=== PATIENT | male | born 1970 | race Caucasian/White ===

== ENCOUNTER 2016-10-18 10:33 | Emergency (ER) | payer OTHER ==
[~2016-10-18] VITALS: Ht 188 cm; Wt 124.0 kg
[~2016-10-18 10:33] MED LIST: LEVA500T33 PO; LORT5TAB PO; METR-1 PO; PHEN12.5 PO; Z.0.NO CURRENT MEDS
[2016-10-18 10:39] VITALS: BP 154/100; PULSE 82; RESP 16; TEMP 98.2; O2SAT 98
[2016-10-18] MEDS ORDERED: LIPI20TA PO (11:17)
[2016-10-18] MEDS ORDERED: LORA-474 PO (11:17)
[2016-10-18] MEDS ORDERED: SODIUM CHLOR 0.9% 1000 ML INJ 1,000 ML IV SCH (11:23)
[2016-10-18] MEDS ORDERED: SODIUM CHLORIDE 0.9% FLUSH 10 ML FLUSH IV FLUSH PRN (11:30)
[2016-10-18] MEDS ORDERED: KETOROLAC TROMETHAMINE 30 MG/ML (IVP) VIAL IVP ONE (11:30)
--- NOTE | 2016-10-18 11:40 | PD ---
HPI Chief Complaint: Flank/Kidney Pain Time Seen by Provider: 11:15 Travel History International Travel<30 days: No Contact w/Intl Traveler<30days: No Traveled to known affect area: No History of Present Illness HPI The patient is a 45-year-old male who presents emergency department for right flank pain which has been present for 2 weeks. The pain is located in the right aspect of the flank, occasionally radiates down into the groin. The pain is worse when he is sitting, while driving with a seatbelt attached. The patient denies any precipitating factors, denies any positional changes that exacerbates the pain except for sitting, and denies any radiation of the pain down the leg. He does have a history of nephrolithiasis and initially thought he had a kidney stone, however, the pain has lasted for over 1 week and is approaching 2 weeks. He denies any nausea, vomiting, dysuria, frequency, urgency, or hematuria. The patient denies any chest pain, shortness of breath, or back pain. Symptoms are moderate, exacerbated by sitting, and there are no current alleviating factors. PFS Past Medical History Anxiety: Yes High Cholesterol: Yes ?: Not Past Surgical History Surgical History: No Previous Surgery Social History Alcohol Use: Yes (OCCASIONALLY) Tobacco Use: No Substance Use: No Allergies-Medications (Allergen,Severity, Reaction): Coded Allergies: No Known Allergies (Unverified , 09/26/11) Reported Meds & Prescriptions Reported Meds & Active Scripts Active Reported Ativan (Lorazepam) 1 Mg Tab 1 Mg PO DAILY PRN Lipitor (Atorvastatin Calcium) 20 Mg Tab 20 Mg PO HS Review of Systems Except as stated in HPI: all other systems reviewed are Neg General / Constitutional: No: Fever Cardiovascular: No: Chest Pain or Discomfort Respiratory: No: Shortness of Breath Gastrointestinal: No: Nausea, Vomiting, Abdominal Pain Genitourinary: Positive: Flank Pain, No: Urgency, Frequency, Dysuria, Hematuria Skin: No Rash Physical Exam Narrative GENERAL: Awake, alert, very pleasant 45-year-old male who appears his stated age and is in no acute respiratory distress. SKIN: Focused skin assessment warm/dry. No stigmata of shingles. HEAD: Atraumatic. Normocephalic. EYES: No injection or drainage. ENT: No nasal bleeding or discharge. Mucous membranes pink and moist. NECK: Trachea midline. No JVD. GASTROINTESTINAL: Abdomen soft, non-tender, nondistended. Negative Sandoval's. Negative McBurney's. Back: No CVA tenderness. MUSCULOSKELETAL: No obvious deformities. No clubbing. No cyanosis. No edema. The patient ambulates without difficulty. NEUROLOGICAL: Awake and alert. No obvious cranial nerve deficits. Motor grossly within normal limits. Normal speech. PSYCHIATRIC: Appropriate mood and affect; insight and judgment normal. Data Data Last Documented VS Vital Signs Date Time Temp Pulse Resp B/P Pulse Ox O2 Delivery O2 Flow Rate FiO2 10/18/16 11:44 98 Room Air 10/18/16 10:39 98.2 82 16 154/100 Orders Complete Blood Count With Diff (10/18/16 11:23) Comprehensive Metabolic Panel (10/18/16 11:23) Urinalysis - C+S If Indicated (10/18/16 11:23) Ct Abd/Pel W/O Iv Contrast (10/18/16 11:23) Iv Access Insert/Monitor (10/18/16 11:23) Ecg Monitoring (10/18/16 11:23) Oximetry (10/18/16 11:23) Sodium Chlor 0.9% 1000 Ml Inj (Ns 1000 M (10/18/16 11:23) Sodium Chloride 0.9% Flush (Ns Flush) (10/18/16 11:30) Ketorolac Inj (Toradol Inj) (10/18/16 11:30) Labs Laboratory Tests Test 10/18/16 11:39 White Blood Count 7.6 TH/MM3 Red Blood Count 5.19 MIL/MM3 Hemoglobin 16.1 GM/DL Hematocrit 47.6 % Mean Corpuscular Volume 91.7 FL Mean Corpuscular Hemoglobin 31.0 PG Mean Corpuscular Hemoglobin 33.8 % Concent Red Cell Distribution Width 12.1 % Platelet Count 181 TH/MM3 Mean Platelet Volume 8.7 FL Neutrophils (%) (Auto) 69.7 % Lymphocytes (%) (Auto) 21.4 % Monocytes (%) (Auto) 7.0 % Eosinophils (%) (Auto) 1.3 % Basophils (%) (Auto) 0.6 % Neutrophils # (Auto) 5.4 TH/MM3 Lymphocytes # (Auto) 1.6 TH/MM3 Monocytes # (Auto) 0.5 TH/MM3 Eosinophils # (Auto) 0.1 TH/MM3 Basophils # (Auto) 0.0 TH/MM3 CBC Comment DIFF FINAL Differential Comment Urine Collection Type CLEAN CATCH Urine Color YELLOW Urine Turbidity CLEAR Urine pH 5.5 Urine Specific [place] 1.020 Urine Protein NEG mg/dL Urine Glucose (UA) 1000 OR GREATER mg/dL Urine Ketones NEG mg/dL Urine Occult Blood NEG Urine Nitrite NEG Urine Bilirubin NEG Urine Leukocyte Esterase NEG Urine WBC 0-2 /hpf Urine Squamous Epithelial 0-5 /hpf Cells Microscopic Urinalysis Comment CULT NOT INDICATED Sodium Level 137 MEQ/L Potassium Level 3.8 MEQ/L Chloride Level 103 MEQ/L Carbon Dioxide Level 24.5 MEQ/L Anion Gap 10 MEQ/L Blood Urea Nitrogen 11 MG/DL Creatinine 1.30 MG/DL Estimat Glomerular Filtration 60 ML/MIN Rate Random Glucose 91 MG/DL Calcium Level 9.0 MG/DL Total Bilirubin 0.5 MG/DL Aspartate Amino Transf 52 U/L (AST/SGOT) Alanine Aminotransferase 80 U/L (ALT/SGPT) Alkaline Phosphatase 56 U/L Total Protein 7.9 GM/DL Albumin 4.2 GM/DL [facility] Medical Decision Making Medical Screen Exam Complete: Yes Emergency Medical Condition: Yes Medical Record Reviewed: Yes Interpretation(s) Laboratory Tests Test 10/18/16 11:39 White Blood Count 7.6 TH/MM3 Red Blood Count 5.19 MIL/MM3 Hemoglobin 16.1 GM/DL Hematocrit 47.6 % Mean Corpuscular Volume 91.7 FL Mean Corpuscular Hemoglobin 31.0 PG Mean Corpuscular Hemoglobin 33.8 % Concent Red Cell Distribution Width 12.1 % Platelet Count 181 TH/MM3 Mean Platelet Volume 8.7 FL Neutrophils (%) (Auto) 69.7 % Lymphocytes (%) (Auto) 21.4 % Monocytes (%) (Auto) 7.0 % Eosinophils (%) (Auto) 1.3 % Basophils (%) (Auto) 0.6 % Neutrophils # (Auto) 5.4 TH/MM3 Lymphocytes # (Auto) 1.6 TH/MM3 Monocytes # (Auto) 0.5 TH/MM3 Eosinophils # (Auto) 0.1 TH/MM3 Basophils # (Auto) 0.0 TH/MM3 CBC Comment DIFF FINAL Differential Comment Urine Collection Type CLEAN CATCH Urine Color YELLOW Urine Turbidity CLEAR Urine pH 5.5 Urine Specific [place] 1.020 Urine Protein NEG mg/dL Urine Glucose (UA) 1000 OR GREATER mg/dL Urine Ketones NEG mg/dL Urine Occult Blood NEG Urine Nitrite NEG Urine Bilirubin NEG Urine Leukocyte Esterase NEG Urine WBC 0-2 /hpf Urine Squamous Epithelial 0-5 /hpf Cells Microscopic Urinalysis Comment CULT NOT INDICATED Sodium Level 137 MEQ/L Potassium Level 3.8 MEQ/L Chloride Level 103 MEQ/L Carbon Dioxide Level 24.5 MEQ/L Anion Gap 10 MEQ/L Blood Urea Nitrogen 11 MG/DL Creatinine 1.30 MG/DL Estimat Glomerular Filtration 60 ML/MIN Rate Random Glucose 91 MG/DL Calcium Level 9.0 MG/DL Total Bilirubin 0.5 MG/DL Aspartate Amino Transf 52 U/L (AST/SGOT) Alanine Aminotransferase 80 U/L (ALT/SGPT) Alkaline Phosphatase 56 U/L Total Protein 7.9 GM/DL Albumin 4.2 GM/DL Last Impressions Abdomen/Pelvis CT 10/18/16 1123 Signed Impressions: Service Date/Time: Tuesday, October 18, 2016 11:42 - CONCLUSION: 1. No abnormality is identified to explain the right flank pain. There are no renal stones. 2. Nonacute findings include severe hepatic steatosis and mild atherosclerotic disease. Tye Gee MD Differential Diagnosis Differential diagnosis includes nephrolithiasis, hydronephrosis, pyelonephritis , atypical appendicitis, neuralgia, shingles, neuropathy. Narrative Course IV was established, labs are drawn and sent, and the patient was placed on cardiac telemetry monitoring and continuous pulse oximetry monitoring. The patient was a senior loan officer Toradol [address] of the abdomen and pelvis was ordered. Laboratory evaluation is unremarkable. UA does reveal glucose, however, no evidence of infection or hematuria. CMP is unremarkable except for mildly elevated AST and ALTs. CT abdomen and pelvis reveals no nephrolithiasis, does reveal mild hepatic steatosis. The patient is advised to follow his primary physician for reevaluation of his LFTs and 3 months. He will be placed on a Medrol Dosepak for presumed musculoskeletal/ neuropathic pain. The patient is advised to have activity as tolerated and follow-up with his primary physician. Diagnosis Primary Impression: Right flank pain Patient Instructions: General Instructions Additional Instructions: Medications as directed. Please provide the patient a copy of his CT results and lab results at discharge. Follow-up with your primary physician. Return if symptoms worsen or progress. Med/Other Pt SpecificInfo: Prescription(s) given Scripts Methylprednisolone Dosepak (Medrol Dosepak)4 Mg Dspk4 Mg PO DIRECTED #1 DSPK Ref 0 Per Pharmacist direction Prov:Jaun Pimentel MD 10/18/16 Disposition: 01 DISCHARGE HOME Condition: Stable Jaun Pimentel MD Oct 18, 2016 11:40
[2016-10-18 11:44] VITALS: O2SAT 98
[2016-10-18 11:50] LABS: AUTOMATED NEUTROPHIL # 5.4 TH/MM3 (1.8-7.7); BASOPHIL % 0.6 % (0.0-2.0); EOSINOPHIL # 0.1 TH/MM3 (0-0.4); EOSINOPHIL % 1.3 % (0.0-4.0); HEMATOCRIT 47.6 % (39.0-51.0); HEMO FLAGS DIFF FINAL; LYMPH % 21.4 % (9.0-44.0); LYMPHOCYTE # 1.6 TH/MM3 (1.0-4.8); MEAN CELL VOLUME 91.7 FL (80.0-100.0); MEAN CORPUSCULAR HGB CONC 33.8 % (32.0-36.0); NEUT % 69.7 % (16.0-70.0); PLATELET COUNT 181 TH/MM3 (150-450); RED BLOOD COUNT 5.19 MIL/MM3 (4.50-5.90); RED CELL DISTRIBUTION WIDTH 12.1 % (11.6-17.2); WHITE BLOOD COUNT 7.6 TH/MM3 (4.0-11.0)
[2016-10-18 12:00] LABS: CHLORIDE 103 MEQ/L (98-107); POTASSIUM 3.8 MEQ/L (3.5-5.1); SODIUM (NA) 137 MEQ/L (136-145)
[2016-10-18 12:01] LABS: BLOOD, URINE NEG (NEG); KETONE, URINE NEG (NEG); NITRITE,URINE NEG (NEG); PH, URINE 5.5 (5.0-8.5)
[2016-10-18 12:03] LABS: ANION GAP 10 MEQ/L (5-15); BICARBONATE 24.5 MEQ/L (21.0-32.0); BLOOD UREA NITROGEN 11 MG/DL (7-18)
[2016-10-18 12:06] LABS: ALT (GPT) 80 U/L (12-78); AST (GOT) 52 U/L (15-37)
[2016-10-18 12:07] LABS: GLOMERULAR FILTRATION RATE 60 ML/MIN (>89); GLUCOSE,URINE 1000 OR GREATER mg/dL (NEG)
[2016-10-18 12:08] LABS: TOTAL BILIRUBIN ADULT 0.5 MG/DL (0.2-1.0)
[2016-10-18 12:09] LABS: ALKALINE PHOSPHATASE 56 U/L (45-117)
[2016-10-18 12:10] LABS: METHOD OF COLLECTION CLEAN CATCH; URINE COLOR YELLOW (YELLW/STRAW)
--- NOTE | 2016-10-18 12:10 | RADRPT ---
EXAM DATE/TIME: 10/18/2016 11:42 [facility] COMPARISON: CT ABDOMEN & PELVIS W/O CONTRAST, September 26, 2011, 16:33. INDICATIONS : Right flank pain for two weeks. ORAL CONTRAST: No oral contrast ingested. RADIATION DOSE: 24.76 CTDIvol (mGy) MEDICAL HISTORY : Hypercholesterolemia. SURGICAL HISTORY : None. ENCOUNTER: Initial ACUITY: 2 weeks PAIN SCALE: 4/10 LOCATION: Right flank TECHNIQUE: Volumetric scanning of the abdomen and pelvis was performed. Using automated exposure control and ad justment of the mA and/or kV according to patient size, radiation dose was kept as low as reasonably achievable to obtain optimal diagnostic quality images. DICOM format image data is available electro nically for review and comparison. FINDINGS: LOWER LUNGS: The visualized lower lungs are clear. LIVER: There is severe steatosis with areas of geographic sparing in the left lobe and adjacent to the gallb ladder fossa. There is no dilation of the biliary tree. No calcified gallstones. SPLEEN: Normal size without lesion. PANCREAS: Within normal limits. KIDNEYS: Normal in size and shape. There is no mass, stone, or hydronephrosis. ADRENAL GLANDS: Within normal limits. VASCULAR: There is no aortic aneurysm. There is mild atherosclerotic disease. BOWEL/MESENTERY: The stomach, small bowel, and colon demonstrate no acute abnormality. There is no free intraperitone al air or fluid. Appendix is normal. ABDOMINAL WALL: Within normal limits. RETROPERITONEUM: There is no lymphadenopathy. BLADDER: No wall thickening or mass. REPRODUCTIVE: Within normal limits. INGUINAL: There is no lymphadenopathy or hernia. MUSCULOSKELETAL: No acute abnormality is identified. CONCLUSION: 1. No abnormality is identified to explain the right flank pain. There are no renal stones. 2. Nonacute findings include severe hepatic steatosis and mild atherosclerotic disease. Tye Gee MD on October 18, 2016 at 12:06 Board Certified Radiologist. This report was verified electronically.
[2016-10-18 12:11] LABS: COMMENT (UR) CULT NOT INDICATED; CULTURE IF INDICATED CULT NOT INDICATED; SQUAMOUS EPITHELIAL CELL URINE 0-5 /hpf (0-5); WBC, URINE 0-2 /hpf (0-5)
[2016-10-18] MEDS ORDERED: MEDR4PAK PO (12:33)
== END 2016-10-18 12:51 | disposition home or self-care (01) ==
LOC: PHED 10:33
DX: R10.9 Unspecified abdominal pain (principal)
CPT/HCPCS: 74176; 80053; 81001; 85025; 96361; 96374; 99285; J1885; J7030

== ENCOUNTER 2018-02-13 06:18 | Inpatient (IN) ==
[2018-02-13] MEDS ORDERED: Sod Chloride 0.9% Inj 1,000 ML IV.SIG ONE (06:34)
[2018-02-13] MEDS ORDERED: Pantoprazole Inj 40 MG Vial IV.PUSH ONE (06:34)
[2018-02-13] MEDS ORDERED: Octreotide Inj 50 MCG/ML Vial IV.PUSH ONE (06:36)
--- NOTE | 2018-02-13 06:40 | ED ---
HPI General Chief complaint: GI Bleed Stated complaint: GI issues Time Seen by Provider: 02/13/18 06:34 Source: patient Mode of arrival: EMS Limitations: no limitations History of Present Illness HPI Narrative: 47-year-old male came to the emergency room with history of vomiting blood and rectal bleed at 1:30 in the morning followed by 5 in the morning. Patient had a syncopal episode at 5:00 in the morning when called 911. His had witnessed the vomiting episode and she said there was significant amount of blood on the couch, floor spread out into a large puddle with blood clots. Patient had received 1 L of IV fluid bolus by EMS on route. Currently he is awake and answering questions and says he feels tired. He also received 4 mg of Zofran on route. Patient was tachycardic upon arrival with heart rate in 140s. Blood pressure is stable. Patient does not have any abdominal pain. Patient had a colonoscopy about 3-4 years back and was normal. He drinks about 3-4 glasses of vodka 4-5 times a week. He has never had this kind of episode in the past. Related Data Home Medications Medication Instructions Recorded Confirmed lorazepam [Ativan] 1 mg PO Q4-6H PRN 02/13/18 02/13/18 lovastatin 20 mg PO DAILY 02/13/18 02/13/18 Allergies Allergy/AdvReac Type Severity Reaction Status Date / Time No Known Allergies Allergy Verified 02/13/18 07:31 Review of Systems ROS: all other systems reviewed are negative PMFSH History History Provided By: Patient Medical History Medical History Anxiety (Acute) High cholesterol (Acute) Surgical History Surgical History No history of previous surgery (Acute) Social History Social History Substance History: No History of Abuse Second Hand Smoke Exposure: No Smoking Status: Former smoker How Often Do You Have a Drink Containing Alcohol: 4 or more times a week Recent Travel in [facility] within the Last 8 Weeks: No Recent Out of Country Travel within the Last 8 Weeks: No Exam Narrative Exam Narrative: GENERAL: Awake, alert, mild distress SKIN: Focused skin assessment warm/dry. Pale HEAD: Atraumatic. Normocephalic. EYES: Pupils equal and round. No scleral icterus. No injection or drainage. ENT: No nasal bleeding or discharge. Mucous membranes pink and moist. NECK: Trachea midline. No JVD. CARDIOVASCULAR: Regular rate and rhythm. No murmur appreciated. RESPIRATORY: No accessory muscle use. Clear to auscultation. Breath sounds equal bilaterally. GASTROINTESTINAL: Abdomen soft, non-tender, nondistended. Hepatic and splenic margins not palpable. MUSCULOSKELETAL: No obvious deformities. No clubbing. No cyanosis. No edema. NEUROLOGICAL: Awake and alert. No obvious cranial nerve deficits. Motor grossly within normal limits. Normal speech. PSYCHIATRIC: Appropriate mood and affect; insight and judgment normal. Procedures Hemaprompt Stool Procedural Steps Taken: specimen placed in appropriate test area, developer placed on specimen and control areas and controls appropriately positive and negative Hemaprompt Stool Result: positive Course Reevaluation(s) Reevaluation #1: Patient has received about 1.5 L of fluid and remains tachycardic at about 130 Time: 07:34 Consultations Consultation #1: Dr. Aguirre will take to the GI lab. Patient needs to remain NPO. Time: 07:34 Consultation #2: Dr. Gamble will admit to [facility]. He is ordering a repeat CBC for 08 :30. Time: 08:09 Initial Documented Vital Signs Pulse Rate 142 H 02/13/18 06:23 Respiratory Rate 22 02/13/18 06:23 Blood Pressure 135/67 02/13/18 06:23 Pulse Oximetry 99 02/13/18 06:23 Last Documented Vital Signs Pulse Rate 111 H 02/13/18 08:01 Respiratory Rate 14 02/13/18 08:01 Blood Pressure 132/72 02/13/18 08:01 Pulse Oximetry 98 02/13/18 08:01 Critical Care Time Critical Care Time: Yes Total Critical Care Time: 45 Attestation: Time to perform other separately billable procedures was not included in the critical care time. My time did not include minutes spent treating any other patients simultaneously or on activities that did not directly contribute to the patient's treatment. The services I provided to this patient were to treat and/or prevent clinically significant deterioration due to upper GI bleed with tachycardia I provided critical care services requiring my management, as noted below: Chart data review, documentation time, medication orders and management, vital sign assessments/reviewing monitor data, ordering and reviewing lab tests, ordering and interpreting/reviewing x-rays and diagnostic studies, care of the patient and discussion of the patient with the admitting physicians Sign Out Sign Out Data: Patient Sign Out occurred on 02/13/18 at 07:32. Patient's care was discussed, and care was transferred from Nate Win to Linsey Palma. Sign Out Comment: GI bleed upper and lower. Awaiting for GI consultation for an urgent endoscopy. Last updated by Nate Win MD at 02/13/18 06:51 Post-Handoff Eval: This patient was signed out to me at 7 AM pending labs and GI consultation followed by admission for an upper GI bleed Medical Decision Making MDM Narrative Medical decision making narrative: 6:40 AM I put a call out for GI. Patient is getting 1 L IV fluid bolus, Protonix bolus, Sandostatin bolus and Protonix and Sandostatin drip. Patient will require EGD. Awaiting for GI to call back. Patient will be signed over to the oncoming ER physician. Medical Screen Exam Complete: Yes Emergency Medical Condition: Yes Lab Data Result diagrams: 02/13/18 06:45 02/13/18 06:45 Lab Results 02/13/18 02/13/18 02/13/18 Range/Units 06:45 06:45 06:45 WBC 13.5 H (4.0-11.0) th/mm3 RBC 3.72 L (4.50-5.90) mil/mm3 Hgb 11.9 L (13.0-17.0) gm/dL Hct 35.7 L (39.0-51.0) % MCV 96.2 (80.0-100.0) fL MCH 32.0 (27.0-34.0) pg MCHC 33.3 (32.0-36.0) % RDW 12.8 (11.6-17.2) % Plt Count 199 (150-450) th/mm3 MPV 9.0 (7.0-11.0) fL Neut % (Auto) 83.4 H (16.0-70.0) % Lymph % (Auto) 9.6 (9.0-44.0) % Trinity % (Auto) 6.6 (0.0-8.0) % Eos % (Auto) 0.1 (0.0-4.0) % Baso % (Auto) 0.3 (0.0-2.0) % Neut # (Auto) 11.3 H (1.8-7.7) th/mm3 Lymph # (Auto) 1.3 (1.0-4.8) th/mm3 Trinity # (Auto) 0.9 (0.0-0.9) th/mm3 Eos # (Auto) 0.0 (0.0-0.4) th/mm3 Baso # (Auto) 0.0 (0.0-0.2) th/mm3 WBC Differential . Differential Comment Auto diff final PT 10.4 (9.8-11.6) sec INR 1.0 Ratio APTT 21.7 L (23.4-31.7) sec Sodium 142 (136-145) meq/L Potassium 4.7 (3.5-5.1) meq/L Chloride 110 H (98-107) meq/L Carbon Dioxide 23.7 (21.0-32.0) meq/L Anion Gap 8 (5-15) meq/L BUN 49 H (7-18) mg/dL Creatinine 1.19 (0.60-1.30) mg/dL Estimated GFR 66 L (>89) mL/min Random Glucose 144 H (74-106) mg/dL Calcium 7.6 L (8.5-10.1) mg/dL Total Bilirubin 0.5 (0.2-1.0) mg/dL AST 25 (15-37) U/L ALT 38 (12-78) U/L Alkaline Phosphatase 34 L (45-117) U/L Total Protein 6.4 (6.4-8.2) g/dL Albumin 3.1 L (3.4-5.0) g/dL Blood Type Blood Type Recheck Antibody Screen 02/13/18 Range/Units 06:45 WBC (4.0-11.0) th/mm3 RBC (4.50-5.90) mil/mm3 Hgb (13.0-17.0) gm/dL Hct (39.0-51.0) % MCV (80.0-100.0) fL MCH (27.0-34.0) pg MCHC (32.0-36.0) % RDW (11.6-17.2) % Plt Count (150-450) th/mm3 MPV (7.0-11.0) fL Neut % (Auto) (16.0-70.0) % Lymph % (Auto) (9.0-44.0) % Trinity % (Auto) (0.0-8.0) % Eos % (Auto) (0.0-4.0) % Baso % (Auto) (0.0-2.0) % Neut # (Auto) (1.8-7.7) th/mm3 Lymph # (Auto) (1.0-4.8) th/mm3 Trinity # (Auto) (0.0-0.9) th/mm3 Eos # (Auto) (0.0-0.4) th/mm3 Baso # (Auto) (0.0-0.2) th/mm3 WBC Differential Differential Comment PT (9.8-11.6) sec INR Ratio APTT (23.4-31.7) sec Sodium (136-145) meq/L Potassium (3.5-5.1) meq/L Chloride (98-107) meq/L Carbon Dioxide (21.0-32.0) meq/L Anion Gap (5-15) meq/L BUN (7-18) mg/dL Creatinine (0.60-1.30) mg/dL Estimated GFR (>89) mL/min Random Glucose (74-106) mg/dL Calcium (8.5-10.1) mg/dL Total Bilirubin (0.2-1.0) mg/dL AST (15-37) U/L ALT (12-78) U/L Alkaline Phosphatase (45-117) U/L Total Protein (6.4-8.2) g/dL Albumin (3.4-5.0) g/dL Blood Type A Positive Blood Type Recheck Required Antibody Screen Negative ECG Data Attestation: I personally reviewed and interpreted this ECG as follows: Interpretation: Twelve-lead EKG was reviewed by me. Normal sinus rhythm, normal axis, nonspecific ST-T wave changes, tachycardia. Heart rate of 143 bpm. Discharge Plan Discharge Disposition Patient Disposition: 30 Still Patient Discharge Details Diagnosis: Upper gastrointestinal hemorrhage Physicians Team ED Provider: Linsey Palma Primary Care Provider: Gavino Dillard Rxs /Orders / Referrals /Forms Prescriptions: No Action lorazepam [Ativan] 1 mg Tablet 1 mg PO Q4-6H PRN (Reason: Anxiety) RF: 0 lovastatin 20 mg Tablet 20 mg PO DAILY RF: 0 Status ED Status: With Doctor
[2018-02-13 07:02] LABS: Baso % (Auto) 0.3 % (0.0-2.0); Eos % (Auto) 0.1 % (0.0-4.0); Hematocrit 35.7 % (39.0-51.0); Hemoglobin 11.9 gm/dL (13.0-17.0); Lymph # (Auto) 1.3 th/mm3 (1.0-4.8); Lymph % (Auto) 9.6 % (9.0-44.0); Mean Corpuscular HGB Conc 33.3 % (32.0-36.0); Mean Corpuscular Volume 96.2 fL (80.0-100.0); Mono # (Auto) 0.9 th/mm3 (0.0-0.9); Mono % (Auto) 6.6 % (0.0-8.0); Neut # (Auto) 11.3 th/mm3 (1.8-7.7); Neut % (Auto) 83.4 % (16.0-70.0); Platelet Count 199 th/mm3 (150-450); Red Blood Count 3.72 mil/mm3 (4.50-5.90); Red Cell Distribution Width 12.8 % (11.6-17.2); White Blood Count 13.5 th/mm3 (4.0-11.0)
[2018-02-13 07:09] LABS: Activated Partial Thrombo Time 21.7 sec (23.4-31.7); Prothrombin Time 10.4 sec (9.8-11.6)
[2018-02-13] MEDS: Pantoprazole Inj 80 MG in Sodium Chlor 0.9% Inj 100 ML IV.CONT SCH ×2 (07:13→18:31)
[2018-02-13] MEDS: Octreotide Inj 500 MCG in Sodium Chlor 0.9% Inj 500 ML IV.CONT SCH ×2 (07:14→17:37)
[2018-02-13] MEDS ORDERED: Sod Chloride 0.9% Inj 1,000 ML IV.SIG SCH (07:15)
[2018-02-13 07:16] LABS: Alanine Aminotransferase 38 U/L (12-78); Albumin 3.1 g/dL (3.4-5.0); Anion Gap 8 meq/L (5-15); Aspartate Aminotransferase 25 U/L (15-37); Blood Urea Nitrogen 49 mg/dL (7-18); Calcium 7.6 mg/dL (8.5-10.1); Carbon Dioxide 23.7 meq/L (21.0-32.0); Chloride 110 meq/L (98-107); Glomerular Filtration Rate 66 mL/min (>89); Glucose,Random 144 mg/dL (74-106); Potassium 4.7 meq/L (3.5-5.1); Sodium 142 meq/L (136-145)
[2018-02-13 07:18] LABS: Alkaline Phosphatase 34 U/L (45-117); Total Protein 6.4 g/dL (6.4-8.2)
[2018-02-13] MEDS ORDERED: Potassium Chlor 20 mEq Premix 20 MEQ/100 ML PIGGYBACK IV.SIG PRN ×2 (08:08)
[2018-02-13] MEDS ORDERED: Potassium Chloride 25 MEQ Effervescent Tablet PO PRN (08:08)
[2018-02-13] MEDS ORDERED: Magnesium Sulfate Inj 2 GM in Sodium Chlor 0.9% Inj 96 ML IV.SIG PRN (08:08)
[2018-02-13] MEDS ORDERED: Potassium Phosphate Inj 30 MMOL in Sodium Chlor 0.9% Inj 250 ML IV.SIG PRN (08:08)
[2018-02-13] MEDS ORDERED: Bisacodyl 10 MG Supp RECTAL PRN (08:08)
[2018-02-13] MEDS ORDERED: Potassium Phosphate 500 MG Soluble Tablet PO PRN ×2 (08:08)
[2018-02-13] MEDS ORDERED: Potassium Chlor 40 mEq Premix 40 MEQ/100 ML PIGGYBACK IV.SIG PRN ×2 (08:08)
[2018-02-13] MEDS ORDERED: Magnesium Oxide 400 MG Tablet PO PRN (08:08)
[2018-02-13] MEDS ORDERED: Magnesium Sulfate Inj 4 GM in Sodium Chlor 0.9% Inj 92 ML IV.SIG PRN (08:08)
[2018-02-13] MEDS ORDERED: Sodium Phosphate Inj 30 MMOL in Sodium Chlor 0.9% Inj 250 ML IV.SIG PRN (08:08)
[2018-02-13] MEDS: Senna/Docusate Sodium 8.6/50 MG Tablet PO SCH ×2 (08:27→20:31)
[2018-02-13] MEDS: Sod Chloride 0.9% Inj 1,000 ML IV.CONT SCH ×2 (08:32→20:14)
[2018-02-13] MEDS ORDERED: LORazepam 1 MG Tablet PO PRN (09:06)
[2018-02-13] MEDS ORDERED: Haloperidol Inj 5 MG/ML Ampul IV.PUSH PRN (09:06)
--- NOTE | 2018-02-13 09:26 | P.HPCC ---
History of Present Illness Service: critical care Primary Care Physician: Gavino Dillard MD Chief Complaint: Hemetemesis History of Present Illness: 47-year-old male came to the emergency room with history of dyslipidemia, heavy alcohol use/abuse, who presented to the emergency department with hematemesis and rectal bleed since 1:30 AM today. At 5 AM patient had a large volume hematemesis and they called EMS and presented to the emergency department. At that time patient had syncopal episode also. Patient had received 1 L of IV fluid bolus by EMS on route. Patient was tachycardic upon arrival with heart rate in 140s. He admits to drinking 3-4 shots of vodka most days of the week sometimes more. Never had upper or lower GI bleed before. No history of liver disease. I evaluated the patient in the ED. He appears anxious and slightly tremulous. So far has received 3 L normal saline boluses. Remains tachycardic still, heart rate in 110s. Blood pressure remained stable. at the bedside quantifies approximately 2-3 L blood loss. His hemoglobin was 11.9 in the ED, his hemoglobin last year 16.1. On exam there is no stigmata of chronic liver disease. Patient had been started on octreotide infusion, Protonix bolus and infusion. Dr. Gates from GI had been consulted and will plan on endoscopy today. Coags and platelet count are normal. I have added Rocephin for SBP prophylaxis. Patient is also slightly tremulous and anxious, placed on CIWA protocol and MVI, thiamin Inpatient Certification: I certify that the inpatient services were ordered in accordance with Medicare regulations governing the order. This includes certification that hospital inpatient services are reasonable and necessary and in the case of services not specified as inpatient-only under 42 CFR 419.22(n), that they are appropriately provided as inpatient services in accordance to with the 2-midnight benchmark under 43 CFR 412.3(e) Estimated Total Length of Stay (Days): 5 Plans for Post Hospital Care: Not yet determined Review of Systems All other systems reviewed negative except as stated in HPI PMFSH - History History Provided By: Patient - Medical History Medical History: Medical History (Last Reviewed 02/13/18 @ 09:15 by Kimmy Gamble MD) Anxiety High cholesterol - Surgical History Surgical History: Surgical History (Last Reviewed 02/13/18 @ 09:15 by Kimmy Gamble MD) No history of previous surgery - Tobacco History Second Hand Smoke Exposure: No Smoking Status: Former smoker - Alcohol History How Often Do You Have a Drink Containing Alcohol: 4 or more times a week - Substance Use History Substance History: No History of Abuse - Travel History Recent Travel in the [place] Within the Last 8 Weeks: No Recent Travel Out of the Country Within the Last 8 Weeks: No - Immunization History Tetanus Immunization: Unsure Medications and Allergies Active Medications: Active Medications Albuterol (Duoneb Neb (Prn)) 1 ampul NEB Q2HR NEB PRN PRN Reason: WHEEZING Bisacodyl (Dulcolax Supp) 10 mg RECTAL DAILY PRN PRN Reason: SEVERE CONSITIPATION Chlorhexidine Gluconate (Chlorhexidine 2% Cloth) 3 pack TOPICAL DAILY@0400 DUC Stop: 02/19/18 03:59 Chlorhexidine Gluconate (Chlorhexidine 2% Cloth) 3 pack TOPICAL DAILY@0400 PRN PRN Reason: Extra cloth needed Stop: 02/19/18 03:59 Flumazenil (Romazecon Inj) 0.2 mg IV.PUSH Q1M PRN PRN Reason: OVERSEDATION Haloperidol Lactate (Haldol Inj) 1 mg IV.PUSH Q15M PRN PRN Reason: for severe agitation Pantoprazole Sodium 80 mg/ (Sodium Chloride) 100 mls @ 10 mls/hr IV.CONT CONT [facility] Last Admin: 02/13/18 07:13 Dose: 10 mls/hr Octreotide Acetate 500 mcg/ (Sodium Chloride) 500.5 mls @ 50.05 mls/hr IV.CONT .Q10H [facility] Last Admin: 02/13/18 07:14 Dose: 50 mcg/hr, 50.05 mls/hr Ceftriaxone Sodium 1,000 mg/ (Sodium Chloride) 100 mls @ 200 mls/hr IV.SIG Q24H [facility] Last Admin: 02/13/18 08:31 Dose: 200 mls/hr Magnesium Sulfate 4 gm/ Sodium (Chloride) 100 mls @ 50 mls/hr IV.SIG UNSCH PRN PRN Reason: For Magnesium 0.9 - 1.1 mg/dL Magnesium Sulfate 2 gm/ Sodium (Chloride) 100 mls @ 50 mls/hr IV.SIG UNSCH PRN PRN Reason: For Magnesium 1.2 - 1.6 mg/dL Sodium Chloride (Ns Inj) 1,000 mls @ 84 mls/hr IV.CONT .[id number] [facility] Last Admin: 02/13/18 08:32 Dose: 84 mls/hr Potassium Chloride (Kcl 40 Meq Premix Inj) 40 meq in 100 mls @ 25 mls/hr IV.SIG Q2H PRN PRN Reason: For Potassium 2.8 - 3.2 mEq/L Potassium Chloride (Kcl 20 Meq Premix Inj) 20 meq in 100 mls @ 50 mls/hr IV.SIG Q2H PRN PRN Reason: For Potassium 3.3 - 3.5 mEq/L Potassium Chloride (Kcl 40 Meq Premix Inj) 40 meq in 100 mls @ 25 mls/hr IV.SIG UNSCH PRN PRN Reason: For Potassium 3.3 - 3.5 mEq/L Potassium Chloride (Kcl 20 Meq Premix Inj) 20 meq in 100 mls @ 50 mls/hr IV.SIG Q2H PRN PRN Reason: For Potassium 2.8 - 3.2 mEq/L Sodium Phosphate 30 mmol/ (Sodium Chloride) 260 mls @ 42 mls/hr IV.SIG UNSCH PRN PRN Reason: For Phosphorus < 2.5 mg/dL Potassium Phosphate 30 mmol/ (Sodium Chloride) 260 mls @ 42 mls/hr IV.SIG UNSCH PRN PRN Reason: SEE LABEL COMMENTS Lactulose (Lactulose Liq) 30 ml PO DAILY PRN PRN Reason: SEVERE CONSITIPATION Lorazepam (Ativan) 1 mg PO Q4H PRN PRN Reason: for CIWA 8-10 Lorazepam (Ativan) 2 mg PO Q2H PRN PRN Reason: for CIWA 11-14 Lorazepam (Ativan Inj) 2 mg IV.PUSH Q2H PRN PRN Reason: for CIWA 11-14 Lorazepam (Ativan Inj) 2 mg IV.PUSH Q1H PRN PRN Reason: for CIWA 15-20 Lorazepam (Ativan Inj) 2 mg IV.PUSH Q15M PRN PRN Reason: for CIWA > 20 Lorazepam (Ativan Inj) 1 mg IV.PUSH Q4H PRN PRN Reason: for CIWA 8-10 Magnesium Oxide (Mag-Ox) 800 mg PO UNSCH PRN PRN Reason: For Magnesium 1.2 - 1.6 mg/dL Potassium Bicarb/Potassium Chloride (K-Lyte Cl Eff) 50 meq PO UNSCH PRN PRN Reason: For Potassium 3.3 - 3.5 mEq/L Potassium Phosphate (K-Phos Original) 2,000 mg PO Q4H PRN PRN Reason: Phosphorus Less Than 2.5 mg/dL Potassium Phosphate (K-Phos Original) 2,000 mg PO UNSCH PRN PRN Reason: SEE LABEL COMMENTS Senna/Docusate Sodium (Yahaira-Colace) 1 tab PO BID [facility] Last Admin: 02/13/18 08:27 Dose: Not Given Sodium Chloride (Ns Flush) 2 ml IV.FLUSH BID [facility] Last Admin: 02/13/18 08:32 Dose: Not Given Sodium Chloride (Ns Flush) 2 ml IV.FLUSH PRN PRN PRN Reason: FLUSH AFTER USING IV ACCESS Allergies Allergy/AdvReac Type Severity Reaction Status Date / Time No Known Allergies Allergy Verified 02/13/18 07:31 Home Medications Medication Instructions Recorded Confirmed Type lorazepam [Ativan] 1 mg PO Q4-6H PRN 02/13/18 02/13/18 History lovastatin 20 mg PO DAILY 02/13/18 02/13/18 History Results - Labs CBC & Chem 7: 02/13/18 06:45 02/13/18 06:45 Labs: Short CBC 02/13/18 Range/Units 06:45 WBC 13.5 H (4.0-11.0) th/mm3 Hgb 11.9 L (13.0-17.0) gm/dL Hct 35.7 L (39.0-51.0) % Plt Count 199 (150-450) th/mm3 [facility] 02/13/18 06:45 Sodium 142 Potassium 4.7 Chloride 110 H Carbon Dioxide 23.7 BUN 49 H Creatinine 1.19 Calcium 7.6 L Liver Function 02/13/18 Range/Units 06:45 Total Bilirubin 0.5 (0.2-1.0) mg/dL AST 25 (15-37) U/L ALT 38 (12-78) U/L Alkaline Phosphatase 34 L (45-117) U/L Albumin 3.1 L (3.4-5.0) g/dL Exam Vital signs: Vital Signs 02/13/18 06:23 02/13/18 06:30 02/13/18 06:34 Pulse Rate 142 H 140 H Respiratory Rate 22 15 Blood Pressure 135/67 124/76 Pulse Oximetry 99 99 99 02/13/18 07:11 02/13/18 08:01 02/13/18 08:26 Pulse Rate 127 H 111 H 120 H Respiratory Rate 12 14 Blood Pressure 118/60 132/72 Pulse Oximetry 100 98 Intake & Output 02/12/18 02/13/18 02/13/18 18:59 06:59 18:59 Intake Total 1999 Balance 1999 Weight 127.006 kg Intake: IV 1999 NS Inj 1,000 ML @ 1000 mls/hr 1999 IV.SIG BOLUS DUC Rx#:[id number] Narrative: GENERAL: Awake, alert, mild distress. Mildly anxious and slightly tremulous SKIN: Focused skin assessment warm/dry. Pale HEAD: Atraumatic. Normocephalic. EYES: Pupils equal and round. No scleral icterus. No injection or drainage. ENT: No nasal bleeding or discharge. Mucous membranes pale NECK: Trachea midline. No JVD. CARDIOVASCULAR: Tachycardic rate and rhythm. No murmur appreciated. RESPIRATORY: No accessory muscle use. Clear to auscultation. Breath sounds equal bilaterally. GASTROINTESTINAL: Abdomen soft, non-tender, nondistended. Hepatic and splenic margins not palpable. MUSCULOSKELETAL: No obvious deformities. No clubbing. No cyanosis. No edema. NEUROLOGICAL: Awake and alert anxious. No obvious cranial nerve deficits. Motor grossly within normal limits. Normal speech. Septic Shock Reassessment Septic shock perfusion: reassessment completed Caprini VTE Risk Assessment Caprini VTE Risk Assessment: Moderate/High Risk (score >= 2) Caprini Risk Assessment Model: Point Value = 1 Point Value = 2 Point Value = 3 Point Value = 5 Age 41-60 Minor surgery BMI > 25 kg/m2 Swollen legs Varicose veins or History of unexplained or recurrent spontaneous Oral contraceptives or hormone replacement Sepsis (< 1 month) Serious lung disease, including pneumonia (< 1 month) Abnormal pulmonary function Acute myocardial infarction Congestive heart failure (< 1 month) History of inflammatory bowel disease Medical patient at bed rest Age 61-74 Arthroscopic surgery Major open surgery (> 45 min) Laparoscopic surgery (> 45 min) Malignancy Confined to bed (> 72 hours) Immobilizing plaster cast Central venous access Age >= 75 History of VTE Family history of VTE Factor V Leiden Prothrombin [id number] Lupus anticoagulant Anticardiolipin antibodies Elevated serum homocysteine Heparin-induced thrombocytopenia Other congenital or acquired thrombophilia Stroke (< 1 month) Elective arthroplasty Hip, pelvis, or leg fracture Acute spinal cord injury (< 1 month) Prophylaxis Regimen: Total Risk Factor Score Risk Level Prophylaxis Regimen 0-1 Low Early ambulation 2 Moderate Order ONE of the following: *Sequential Compression Device (SCD) *Heparin 5000 units SQ BID 3-4 Higher Order ONE of the following medications: *Heparin 5000 units SQ TID *Enoxaparin/Lovenox 40 mg SQ daily (WT < 150 kg, CrCl > 30 mL/min) *Enoxaparin/Lovenox 30 mg SQ daily (WT < 150 kg, CrCl > 10-29 mL/min) *Enoxaparin/Lovenox 30 mg SQ BID (WT < 150 kg, CrCl > 30 mL/min) AND/OR *Sequential Compression Device (SCD) 5 or more Highest Order ONE of the following medications: *Heparin 5000 units SQ TID (Preferred with Epidurals) *Enoxaparin/Lovenox 40 mg SQ daily (WT < 150 kg, CrCl > 30 mL/min) *Enoxaparin/Lovenox 30 mg SQ daily (WT < 150 kg, CrCl > 10-29 mL/min) *Enoxaparin/Lovenox 30 mg SQ BID (WT < 150 kg, CrCl > 30 mL/min) AND *Sequential Compression Device (SCD) Assessment and Plan - Assessment and Plan Plan: NEURO: Alcohol abuse, possible alcohol dependence -Strongly advised to quit drinking -[facility] protocol, supplement multivitamin thiamine, watch closely for alcohol withdrawal RESP: -DuoNeb every 6 hours as needed CV: Early hemorrhagic shock Dyslipidemia -Normal saline IV fluids 3L bolus and 100 ml per hour -PRBC resuscitation as needed GI/HEME: Upper GI bleed -N.p.o., IV Protonix 80 mg bolus and 8 mg/h infusion -Octreotide infusion per protocol -Rocephin for SBP prophylaxis -Dr. Gates consulted for endoscopy -Differential diagnosis includes peptic ulcer disease, gastritis, portal gastropathy versus variceal bleeding -Check H&H every 8 hours. Transfuse PRBC to keep hemoglobin more than 8 -Coags and platelet count are normal continue to monitor : -Monitor renal function closely. ID: -Rocephin for SBP prophylaxis ENDO: -Electrolyte replacement per protocol PROPH: -Bilateral lower extremity SCDs. Chemical DVT prophylaxis is contraindicated -IV Protonix 80 mg x1 and 8 mg LINES: -Utilize peripheral IVs CC time 42 min
[2018-02-13] MEDS ORDERED: Influenza (Quadrivalent) Vaccine 0.5 ML Syringe IM ONE (11:00)
[2018-02-13] MEDS ORDERED: Multivitamin Inj 10 ML, Thiamine Inj 100 MG, Folic Acid Inj 1 MG in Sodium Chlor 0.9% I... IV.SIG SCH (11:00)
--- NOTE | 2018-02-13 12:46 | GIPROC ---
[facility] [address] [facility]. [facility], [address] EGD PROCEDURE REPORT EXAM DATE: 02/13/2018 PATIENT NAME: Oneil Steen MR #: [id number] BIRTHDATE: 1970 ATTENDING: Funmi Montoya MD ORDER #: [id number] ROLLER SETTER: Johana Garza and Sis Dior STATUS: inpatient INDICATIONS: The patient is a 47 yr old male here for an EGD due to hematemesis and melena PROCEDURE PERFORMED: EGD w/ control of bleeding MEDICATIONS: Per Anesthesia and None. TOPICAL ANESTHETIC: none CONSENT: The patient understands the risks and benefits of the procedure and understands that these risks include, but are not limited to: sedation, allergic reaction, infection, perforation and/or bleeding. Alternative means of evaluation and treatment include, among others: physical exam, x-rays, and/or surgical intervention. The patient elects to proceed with this endoscopic procedure. medical equipment was checked for proper function. Hand hygiene and appropriate measures for infection prevention was taken. After the risks, benefits and alternatives of the procedure were thoroughly explained, Informed consent was verified, confirmed and timeout was successfully executed by the treatment team. The patient was anesthetized with topical anesthesia and the Pentax [id number] endoscope was introduced through the mouth and advanced to the second portion of the duodenum. Retroflexed views revealed no abnormalities The gastroscope was then slowly withdrawn and removed. ESOPHAGUS: An actively bleeding Charla-Blankenship tear with evidence of recent bleeding was found in the lower third of the esophagus. A medium sized hiatal hernia was noted. Partial hemostasis was achieved by placing three Cook instinct hemoclips on the bleeding site(s). STOMACH: The mucosa of the stomach appeared normal. DUODENUM: The duodenal mucosa appeared normal. ADVERSE EVENTS: There were no complications. IMPRESSIONS: 1. Charla-Blankenship tear in the lower third of the esophagus, with deep longuitudinal deep ulcer covered by clot, clot flushed out and large pulsating visible vessel seen underneth, Hemoclips times 3 applied followed by Epinephrine injection of a total of 6 cc with total control of the bleeding. 2. Medium sized hiatal hernia 3. The mucosa of the stomach appeared normal 4. Normal duodenal mucosa RECOMMENDATIONS: 1. Hematocrit 2. ICU monitoring PATIENT CONDITION: stable DISPOSITION: Observation REPEAT EXAM: NONE Funmi Montoya MD eSigned: Funmi Montoya MD 02/13/2018 12:46 PM cc: PATIENT NAME: Oneil Steen MR#: [id number]
[2018-02-13] MEDS ORDERED: fentaNYL Citrate Inj 100 MCG/2 ML Ampul ONE (12:56)
--- NOTE | 2018-02-13 13:00 | ECG ---
Date Performed: 02/13/2018 Time Performed: 06:25:55 PTAGE: 47 years EKG: SINUS TACHYCARDIA, POSSIBLE ATRIAL FLUTTER ABNORMAL RHYTHM ECG NO PREVIOUS TRACING DOCTOR: Bernardo Chun Interpretating Date/Time 02/13/2018 12:58:23
--- NOTE | 2018-02-13 22:22 | MB ---
cc: Funmi Montoya MD DATE: 02/13/2018 REASON FOR CONSULTATION: Upper GI bleeding. HISTORY OF PRESENT ILLNESS: This is a 47-year-old male patient who is not known to have any chronic medical disease except for dyslipidemia and anxiety disorder, presented to the emergency room after vomiting large amount of excessive blood happened this morning that he reported at least 5 times followed by dark tarry stools at least 10 times. The patient became dizzy and lethargic and immediately called 911 for further evaluation. The patient was seen immediately in the emergency room and was given fluid and his labs appeared to be unremarkable, but was admitted for further evaluation. The patient never had any previous similar problem in the past. Denies history of nonsteroidal anti-inflammatory drug use. Denies any change in at this time. Denies dysphagia. He admits to drinking 3-4 glasses of vodka 4 times a week. He drank the same amount of his usual alcohol intake during the football game last night and slept without any problems and when he woke up, he had this problem, nausea and vomiting. REVIEW OF SYSTEMS: All 14 points review of systems is negative, except the ones mentioned in the history of present illness. MEDICATIONS: 1. Lorazepam p.r.n. needed. 2. Lovastatin. ALLERGIES: NO KNOWN DRUG ALLERGIES. FAMILY HISTORY: Negative. PAST SURGICAL HISTORY: Negative. PSYCHOSOCIAL HISTORY: He is a father of 4 kids. Former smoker and denies IV drug abuse. PHYSICAL EXAMINATION: GENERAL: The patient found to be comfortable, not in distress, oriented and hemodynamically stable, afebrile. HEAD AND NECK: Normocephalic, atraumatic. Pupils equal and reactive to light. Supple neck. No lymphadenopathy. No thyromegaly. CHEST: Decreased auscultation bilaterally. No crackles or wheezes. CARDIOVASCULAR: Regular rate and rhythm. No murmurs. ABDOMEN: Soft, nontender. No hepatosplenomegaly. No palpable masses. EXTREMITIES: Normal pulses. No edema. NEUROLOGIC: Cranial nerves 2-12 grossly intact. SKIN: No rashes. LABORATORY DATA: Initial lab shows hemoglobin of 11.9, hematocrit 5.7 and on baseline, white count 13.5. His chemistries were essentially unremarkable. Normal PT and PTT. Normal . ASSESSMENT AND PLAN: A 47-year-old male patient with the following problems: 1. Significant large amount of bleeding early this morning after drinking alcohol last night. 2. Hematemesis and melena. 3. No risk factors like use of nonsteroidal anti-inflammatory drugs or chronic liver disease. RECOMMENDATIONS: Agree with critical care management. Keep the patient n.p.o. Type and crossmatch. Follow H and H. We will proceed with endoscopic evaluation today. We will follow up with you. Thank you for the consult. MD MATHEW Ford/chin/abigail , 06:02 PM , 06:13 PM
[2018-02-14] MEDS ORDERED: Chlorhexidine Gluconate 2% 1 Pack (2 Cloths) TOPICAL PRN (04:00)
[2018-02-14] MEDS ORDERED: Chlorhexidine Gluconate 2% 1 Pack (2 Cloths) TOPICAL SCH (04:00)
[2018-02-14] MEDS: Octreotide Inj 500 MCG in Sodium Chlor 0.9% Inj 500 ML IV.CONT SCH (04:16)
[2018-02-14] MEDS: Pantoprazole Inj 80 MG in Sodium Chlor 0.9% Inj 100 ML IV.CONT SCH (04:16)
[2018-02-14] MEDS: Sod Chloride 0.9% Inj 1,000 ML IV.CONT SCH (07:56)
[2018-02-14 09:00] LABS: Baso % (Auto) 0.2 % (0.0-2.0); Eos % (Auto) 0.1 % (0.0-4.0); Hematocrit 22.8 % (39.0-51.0); Hemoglobin 7.9 gm/dL (13.0-17.0); Lymph # (Auto) 1.2 th/mm3 (1.0-4.8); Lymph % (Auto) 18.2 % (9.0-44.0); Mean Corpuscular HGB Conc 34.7 % (32.0-36.0); Mean Corpuscular Hemoglobin 33.4 pg (27.0-34.0); Mean Corpuscular Volume 96.3 fL (80.0-100.0); Mean Platelet Volume 8.7 fL (7.0-11.0); Mono # (Auto) 0.3 th/mm3 (0.0-0.9); Mono % (Auto) 5.4 % (0.0-8.0); Neut # (Auto) 4.9 th/mm3 (1.8-7.7); Neut % (Auto) 76.1 % (16.0-70.0); Platelet Count 127 th/mm3 (150-450); Red Blood Count 2.37 mil/mm3 (4.50-5.90); Red Cell Distribution Width 13.2 % (11.6-17.2); White Blood Count 6.5 th/mm3 (4.0-11.0)
[2018-02-14] MEDS: Senna/Docusate Sodium 8.6/50 MG Tablet PO SCH (09:05)
[2018-02-14 09:14] LABS: Prothrombin Time 10.3 sec (9.8-11.6)
--- NOTE | 2018-02-14 09:22 | P.DS ---
Date of admission: 02/13/18 08:07 Primary care physician: Gavino Dillard MD Brief History from admission: 47-year-old male came to the emergency room with history of dyslipidemia, heavy alcohol use/abuse, who presented to the emergency department with hematemesis and rectal bleed since 1:30 AM today. At 5 AM patient had a large volume hematemesis and they called EMS and presented to the emergency department. At that time patient had syncopal episode also. Patient had received 1 L of IV fluid bolus by EMS on route. Patient was tachycardic upon arrival with heart rate in 140s. He admits to drinking 3-4 shots of vodka most days of the week sometimes more. Never had upper or lower GI bleed before. No history of liver disease. I evaluated the patient in the ED. He appears anxious and slightly tremulous. So far has received 3 L normal saline boluses. Remains tachycardic still, heart rate in 110s. Blood pressure remained stable. at the bedside quantifies approximately 2-3 L blood loss. His hemoglobin was 11.9 in the ED, his hemoglobin last year 16.1. On exam there is no stigmata of chronic liver disease. Patient had been started on octreotide infusion, Protonix bolus and infusion. Dr. Gates from GI had been consulted and will plan on endoscopy today. Coags and platelet count are normal. I have added Rocephin for SBP prophylaxis. Patient is also slightly tremulous and anxious, placed on CIWA protocol and MVI, thiamin DS: Medications - Discharge Medications Prescriptions: ciprofloxacin HCl 500 mg PO Q12H #10 tab pantoprazole [Protonix] 40 mg PO DAILY 30 Days #30 tab DS: Summary - Time Spent with Patient Total time spent providing and/or coordinating discharge services: - Quality: VTE Deep Vein Thrombosis/Pulmonary Embolism Present on Admission: No Exam Vital signs: Vital Signs 02/13/18 09:49 02/13/18 10:00 02/13/18 10:15 Temperature Pulse Rate 122 H 124 H 119 H Respiratory Rate 12 20 14 Blood Pressure 100/58 L Pulse Oximetry 96 95 97 02/13/18 11:00 02/13/18 12:45 02/13/18 13:00 Temperature 98.7 F 98.5 F Pulse Rate 119 H 139 H 124 H Respiratory Rate 20 14 13 Blood Pressure 94/58 L 134/72 114/67 Pulse Oximetry 96 99 97 02/13/18 13:15 02/13/18 14:00 02/13/18 15:00 Temperature Pulse Rate 146 H 124 H 114 H Respiratory Rate 24 20 27 H Blood Pressure 94/58 L 122/72 Pulse Oximetry 97 95 96 02/13/18 15:01 02/13/18 16:00 02/13/18 17:00 Temperature 98.3 F Pulse Rate 121 H 114 H 113 H Respiratory Rate 27 H 22 23 Blood Pressure 122/72 117/55 L 113/52 L Pulse Oximetry 95 95 95 02/13/18 17:01 02/13/18 18:00 02/13/18 19:00 Temperature Pulse Rate 114 H 112 H 108 H Respiratory Rate 19 18 16 Blood Pressure 113/52 L 119/61 114/56 L Pulse Oximetry 96 95 95 02/13/18 19:22 02/13/18 20:00 02/13/18 21:00 Temperature 99.1 F Pulse Rate 98 H 107 H Respiratory Rate 15 19 Blood Pressure 119/67 109/57 L Pulse Oximetry 97 95 93 L 02/13/18 22:00 02/13/18 23:00 02/14/18 00:00 Temperature Pulse Rate 105 H 96 H 95 H Respiratory Rate 19 16 15 Blood Pressure 111/66 102/56 L 96/52 L Pulse Oximetry 97 94 L 97 02/14/18 01:00 02/14/18 02:00 02/14/18 03:00 Temperature Pulse Rate 91 H 91 H 102 H Respiratory Rate 15 14 23 Blood Pressure 100/51 L 114/54 L 108/51 L Pulse Oximetry 97 99 97 02/14/18 04:00 02/14/18 04:01 02/14/18 05:00 Temperature Pulse Rate 88 89 90 Respiratory Rate 13 13 19 Blood Pressure 134/66 134/66 123/67 Pulse Oximetry 99 98 96 02/14/18 06:00 Temperature Pulse Rate 97 H Respiratory Rate 19 Blood Pressure 123/67 Pulse Oximetry 99 Intake & Output 02/13/18 02/14/18 02/14/18 18:59 06:59 18:59 Intake Total 4251.7 / 4251.7 2800.5 / 2800.5 1000 / 1000 Output Total 300 / 300 2950 / 2950 Balance 3951.7 / 3951.7 -149.5 / -149.5 1000 / 1000 Weight 130 kg 132.1 kg Intake: IV 3211.7 / 3211.7 1600.5 / 1600.5 1000 / 1000 SandoSTATIN Inj 500 MCG In NS 500.5 / 500.5 500.5 / 500.5 Inj 500 ML @ 50 MCG/HR 50.05 mls/hr IV.CONT .Q10H DUC Rx#: [id number] Protonix Inj 80 MG In NS Inj 100 / 100 100 / 100 100 ML @ 10 mls/hr IV.CONT CONT DUC Rx#:[id number] NS Inj 1,000 ML @ 84 mls/hr IV. 1000 / 1000 1000 / 1000 CONT .[id number] DUC Rx#:[id number] MVI-12 Inj 10 ML Thiamine Inj 511.2 / 511.2 100 MG Folvite Inj 1 MG In NS Inj 500 ML @ 125 mls/hr IV.SIG Q24H DUC Rx#:[id number] NS Inj 1,000 ML @ 1000 mls/hr 2000 / 1999 IV.SIG BOLUS DUC Rx#:[id number] Rocephin Inj 1,000 MG In NS Inj 100 / 100 100 ML @ 200 mls/hr IV.SIG Q24H DUC Rx#:[id number] Oral 240 / 240 1200 / 1200 Anesthesia Amount 800 / 800 Output: Urine 300 / 300 2950 / 2950 Emesis 0 / 0 Other: Date of Last Bowel Movement 02/13/18 02/13/18 # Bowel Movements 0 Weight On Admission 130 kg Results Labs on day of discharge: Labs from last 24 hours 02/14/18 02/14/18 02/14/18 08:03 08:03 08:03 WBC 6.5 RBC 2.37 L Hgb 7.9 L Hct 22.8 L MCV 96.3 MCH 33.4 MCHC 34.7 RDW 13.2 Plt Count 127 L D MPV 8.7 Neut % (Auto) 76.1 H Lymph % (Auto) 18.2 Yates % (Auto) 5.4 Eos % (Auto) 0.1 Baso % (Auto) 0.2 Neut # (Auto) 4.9 Lymph # (Auto) 1.2 Yates # (Auto) 0.3 Eos # (Auto) 0.0 Baso # (Auto) 0.0 WBC Differential . Differential Comment Auto diff final PT 10.3 INR 1.0 Sodium Pending Potassium Pending Chloride Pending Carbon Dioxide Pending Anion Gap Pending BUN Pending Creatinine Pending Random Glucose Pending Calcium Pending Total Bilirubin Pending AST Pending ALT Pending Alkaline Phosphatase Pending Total Protein Pending Albumin Pending Nasal Screen MRSA (PCR) MTS Gel Crossmatch 02/14/18 02/13/18 02/13/18 00:56 16:25 10:00 WBC RBC Hgb 8.1 L 9.6 L Hct MCV MCH MCHC RDW Plt Count MPV Neut % (Auto) Lymph % (Auto) Yates % (Auto) Eos % (Auto) Baso % (Auto) Neut # (Auto) Lymph # (Auto) Yates # (Auto) Eos # (Auto) Baso # (Auto) WBC Differential Differential Comment PT INR Sodium Potassium Chloride Carbon Dioxide Anion Gap BUN Creatinine Random Glucose Calcium Total Bilirubin AST ALT Alkaline Phosphatase Total Protein Albumin Nasal Screen MRSA (PCR) Not detected MTS Gel Crossmatch 02/13/18 02/13/18 08:56 07:02 WBC RBC Hgb 11.0 L Hct MCV MCH MCHC RDW Plt Count MPV Neut % (Auto) Lymph % (Auto) Yates % (Auto) Eos % (Auto) Baso % (Auto) Neut # (Auto) Lymph # (Auto) Yates # (Auto) Eos # (Auto) Baso # (Auto) WBC Differential Differential Comment PT INR Sodium Potassium Chloride Carbon Dioxide Anion Gap BUN Creatinine Random Glucose Calcium Total Bilirubin AST ALT Alkaline Phosphatase Total Protein Albumin Nasal Screen MRSA (PCR) MTS Gel Crossmatch See Detail Discharge Plan - Discharge Disposition Patient Disposition: 01 Discharge Home - Discharge Condition Condition: Fair - Discharge Order Discharge Orders: Discharge Order (Routine); Ordered 02/14/18 Ordered By: Nancy Call - Discharge Details Anticipated Discharge Date: 02/14/18 - Physicians Team Primary Care Provider: Gavino Dillard Attending Provider: Nancy Call Other Providers: Funmi Montoya MD
[2018-02-14 09:56] VITALS: PULSE 91
[2018-02-14 09:57] VITALS: BP 116/59; RESP 16; TEMP 97.9; O2SAT 96
[2018-02-14 10:30] LABS: Albumin 2.8 g/dL (3.4-5.0); Carbon Dioxide 22.3 meq/L (21.0-32.0); Potassium 3.8 meq/L (3.5-5.1); Total Protein 5.3 g/dL (6.4-8.2)
== END 2018-02-14 10:20 | disposition home or self-care (01) ==
LOC: NEPC 06:18 → NEDA 08:07 → HIMC 09:40
PROVIDERS: ADMIT Hospitalist; ATTEND Hospitalist
PROC: PANENDO (2018-02-13 11:59)